=== PATIENT | male | born 1980 | race Caucasian/White ===

== ENCOUNTER 2018-04-06 12:51 | Emergency (ER) | payer SELFPAY ==
--- NOTE | 2018-04-06 12:55 | ER Report ---
History and Physical Time Seen By MD: 12:55 HPI/ROS CHIEF COMPLAINT: Right lower quadrant abdominal and flank pain HISTORY OF PRESENT ILLNESS: Patient is a 37-year-old male here with complaints of right lower quadrant abdominal pain and right flank pain which started yesterday and acutely worsened approximately 2 hours ago. Patient complains of sharp severe pain with radiation to the groin. Denies hematuria, fevers, chest pain, shortness breath. Patient has attempted taking Tylenol without relief. Patient complains of nausea without vomiting. REVIEW OF SYSTEMS: Constitutional: No fever, no chills. Eyes: No discharge. ENT: No sore throat. Cardiovascular: No chest pain, no palpitations. Respiratory: No cough, no shortness of breath. Gastrointestinal: + RLQ abdominal pain, no vomiting, + nausea Genitourinary: No hematuria. Musculoskeletal: + right flank back pain. Skin: No rashes. Neurological: No headache. Allergies: Coded Allergies: Penicillins (Verified Allergy, Unknown, 04/06/18) ketorolac (Verified Allergy, Unknown, 04/06/18) Home Meds Active Scripts Oxycodone Hcl/Acetaminophen (PERCOCET 5-325 MG TABLET) 1 Each Tablet, 1 EACH PO Q4H Y for PAIN, #12 TAB 0 Refills Prov:ACUÑAKACIE GONGORA S DO 04/06/18 Ondansetron (ZOFRAN ODT) 4 Mg Tab.rapdis, 4 MG PO Q6H Y for NAUSEA/VOMITING, # 20 TAB.JOSE 0 Refills Prov:ACUÑAKACIE S DO 04/06/18 Constitutional Vital Sign - Last 24 Hours 04/06/18 04/06/18 04/06/18 04/06/18 12:56 13:13 13:30 14:00 Temp 97.8 Pulse 95 81 Resp 18 B/P (MAP) 120/98 120/78 (92) 116/79 (91) 114/74 (87) Pulse Ox 94 93 O2 Delivery Room Air 04/06/18 14:40 B/P (MAP) 104/93 (97) Physical Exam General Appearance: The patient is alert, has no immediate need for airway protection and no signs of toxicity. + moderate distress due to pain Eyes: Pupils equal and round no pallor or injection. ENT, Mouth: Mucous membranes are moist. Respiratory: There are no retractions, lungs are clear to auscultation. Cardiovascular: Regular rate and rhythm. Gastrointestinal: Abdomen is soft and + TTP RLQ, no masses, bowel sounds normal. Neurological: No focal deficits Skin: Warm and dry, no rashes. Musculoskeletal: Neck is supple non tender. Extremities are nontender, nonswollen and have full range of motion. DIFFERENTIAL DIAGNOSIS: After history and physical exam differential diagnosis was considered for abdominal pain including but not limited to appendicitis, cholecystitis, gastritis and urinary tract infection, nephrolithiasis, pyelonephritis Medical Decision Making Data Points Result Diagram: 04/06/18 1301 04/06/18 1301 Laboratory Hematology Test 04/06/18 12:55 04/06/18 13:01 Urine Color Straw Urine Clarity Clear Urine pH 7.0 pH (4.8-9.5) Urine Specific [place] 1.010 Urine Protein Negative mg/dL (NEGATIVE) Urine Glucose (UA) Negative mg/dL (NEGATIVE) Urine Ketones Negative mg/dL (NEGATIVE) Urine Blood Negative (NEGATIVE) Urine Nitrite Negative (NEGATIVE) Urine Bilirubin Negative (NEGATIVE) Urine Urobilinogen Negative mg/dL (0.2-1.9) Urine Leukocyte Esterase Negative (NEGATIVE) Urine RBC None /HPF (0-2/HPF) Urine WBC None /HPF (0-5/HPF) Urine Squamous Epithelial Cells Few /LPF (</=FEW) Urine Bacteria Negative /HPF (NONE-FEW) Urine Mucus None /HPF (NONE-FEW) Red Blood Count 5.67 M/uL (4.00-5.60) Mean Corpuscular Volume 91.6 fL (80.0-96.0) Mean Corpuscular Hemoglobin 31.9 pg (26.0-33.0) Mean Corpuscular Hemoglobin Concent 34.8 g/dL (32.0-36.0) Red Cell Distribution Width 13.7 % (11.5-14.5) Mean Platelet Volume 6.1 fL (7.2-11.1) Neutrophils (%) (Auto) 71.3 % (39.4-72.5) Lymphocytes (%) (Auto) 20.4 % (17.6-49.6) Monocytes (%) (Auto) 6.0 % (4.1-12.4) Eosinophils (%) (Auto) 1.7 % (0.4-6.7) Basophils (%) (Auto) 0.6 % (0.3-1.4) Nucleated RBC Relative Count (auto) 0.0 /100WBC Neutrophils # (Auto) 5.6 K/uL (2.0-7.4) Lymphocytes # (Auto) 1.6 K/uL (1.3-3.6) Monocytes # (Auto) 0.5 K/uL (0.3-1.0) Eosinophils # (Auto) 0.1 K/uL (0.0-0.5) Basophils # (Auto) 0.1 K/uL (0.0-0.1) Nucleated RBC Absolute Count (auto) 0.00 K/uL Sodium Level 141 mmol/L (137-145) Potassium Level 4.5 mmol/L (3.5-5.0) Chloride Level 101 mmol/L (98-107) Carbon Dioxide Level 28 mmol/L (22-30) Blood Urea Nitrogen 9 mg/dl (9-21) Creatinine 0.80 mg/dl (0.66-1.25) Glomerular Filtration Rate Calc > 60.0 Random Glucose 106 mg/dl (75-110) Lactate 2.3 mmol/L (0.7-2.1) Calcium Level 9.3 mg/dl (8.4-10.2) Total Bilirubin 1.5 mg/dl (0.2-1.3) Aspartate Amino Transf (AST/SGOT) 69 U/L (0-35) Alanine Aminotransferase (ALT/SGPT) 103 U/L (0-56) Alkaline Phosphatase 63 U/L (0-126) Total Protein 7.3 g/dl (6.3-8.2) Albumin 4.3 g/dl (3.5-5.0) Lipase 47 U/L (23-300) Chemistry Test 04/06/18 12:55 04/06/18 13:01 Urine Color Straw Urine Clarity Clear Urine pH 7.0 pH (4.8-9.5) Urine Specific [place] 1.010 Urine Protein Negative mg/dL (NEGATIVE) Urine Glucose (UA) Negative mg/dL (NEGATIVE) Urine Ketones Negative mg/dL (NEGATIVE) Urine Blood Negative (NEGATIVE) Urine Nitrite Negative (NEGATIVE) Urine Bilirubin Negative (NEGATIVE) Urine Urobilinogen Negative mg/dL (0.2-1.9) Urine Leukocyte Esterase Negative (NEGATIVE) Urine RBC None /HPF (0-2/HPF) Urine WBC None /HPF (0-5/HPF) Urine Squamous Epithelial Cells Few /LPF (</=FEW) Urine Bacteria Negative /HPF (NONE-FEW) Urine Mucus None /HPF (NONE-FEW) White Blood Count 7.9 k/uL (4.5-11.0) Red Blood Count 5.67 M/uL (4.00-5.60) Hemoglobin 18.1 g/dL (14.0-18.0) Hematocrit 52.0 % (42.0-52.0) Mean Corpuscular Volume 91.6 fL (80.0-96.0) Mean Corpuscular Hemoglobin 31.9 pg (26.0-33.0) Mean Corpuscular Hemoglobin Concent 34.8 g/dL (32.0-36.0) Red Cell Distribution Width 13.7 % (11.5-14.5) Platelet Count 323 K/uL (150-450) Mean Platelet Volume 6.1 fL (7.2-11.1) Neutrophils (%) (Auto) 71.3 % (39.4-72.5) Lymphocytes (%) (Auto) 20.4 % (17.6-49.6) Monocytes (%) (Auto) 6.0 % (4.1-12.4) Eosinophils (%) (Auto) 1.7 % (0.4-6.7) Basophils (%) (Auto) 0.6 % (0.3-1.4) Nucleated RBC Relative Count (auto) 0.0 /100WBC Neutrophils # (Auto) 5.6 K/uL (2.0-7.4) Lymphocytes # (Auto) 1.6 K/uL (1.3-3.6) Monocytes # (Auto) 0.5 K/uL (0.3-1.0) Eosinophils # (Auto) 0.1 K/uL (0.0-0.5) Basophils # (Auto) 0.1 K/uL (0.0-0.1) Nucleated RBC Absolute Count (auto) 0.00 K/uL Glomerular Filtration Rate Calc > 60.0 Lactate 2.3 mmol/L (0.7-2.1) Calcium Level 9.3 mg/dl (8.4-10.2) Total Bilirubin 1.5 mg/dl (0.2-1.3) Aspartate Amino Transf (AST/SGOT) 69 U/L (0-35) Alanine Aminotransferase (ALT/SGPT) 103 U/L (0-56) Alkaline Phosphatase 63 U/L (0-126) Total Protein 7.3 g/dl (6.3-8.2) Albumin 4.3 g/dl (3.5-5.0) Lipase 47 U/L (23-300) Urinalysis Test 04/06/18 12:55 Urine Color Straw Urine Clarity Clear Urine pH 7.0 pH (4.8-9.5) Urine Specific [place] 1.010 Urine Protein Negative mg/dL (NEGATIVE) Urine Glucose (UA) Negative mg/dL (NEGATIVE) Urine Ketones Negative mg/dL (NEGATIVE) Urine Blood Negative (NEGATIVE) Urine Nitrite Negative (NEGATIVE) Urine Bilirubin Negative (NEGATIVE) Urine Urobilinogen Negative mg/dL (0.2-1.9) Urine Leukocyte Esterase Negative (NEGATIVE) Urine RBC None /HPF (0-2/HPF) Urine WBC None /HPF (0-5/HPF) Urine Squamous Epithelial Cells Few /LPF (</=FEW) Urine Bacteria Negative /HPF (NONE-FEW) Urine Mucus None /HPF (NONE-FEW) EKG/Imaging Imaging CT abdomen and pelvis with IV contrast: Several appendicoliths were identified without inflammatory changes around the appendix. No nephrolithiasis or hydronephrosis was identified. Please see official report for more details. ED Course/Re-evaluation ED Course Patient had taken Tylenol prior to arrival without relief of symptoms. Patient is a 37-year-old male here with complaints of right lower quadrant abdominal pain, right flank pain which radiates to the groin patient started yesterday however acutely worsen overnight. Patient denies prior history of nephrolithiasis, hematuria, dysuria. Patient attempted taking tylenol without relief. He received dialudid, zofran and fluids with moderate relief of symptoms. Urinalysis showed no acute blood or infectious etiology. Physical exam was unremarkable aside for exquisite right lower quadrant abdominal pain, right CVA tenderness. CT imaging of the abdomen and pelvis showed appendicoliths without any sign of infection or inflammatory changes. No nephrolithiasis or ureterolithiasis was identified. Patient was supplied with scripts for Zofran and Percocet for home and analgesia. She was advised to return promptly if you develop worsening pain, fevers, chills, worsening nausea. Patient was stable at time of discharge. Decision to Disposition Date: Apr 06, 2018 Decision to Disposition Time: 14:40 Depart Departure Latest Vital Signs Vital Signs Date Time Temp Pulse Resp B/P (MAP) Pulse Ox O2 Delivery O2 Flow Rate FiO2 04/06/18 14:40 104/93 (97) 04/06/18 14:00 81 93 04/06/18 12:56 97.8 18 Room Air Impression: Primary Impression: Flank pain Additional Impression: Abdominal pain Condition: Improved Disposition: HOME OR SELF-CARE New Scripts Oxycodone Hcl/Acetaminophen (PERCOCET 5-325 MG TABLET) 1 Each Tablet 1 EACH PO Q4H Y for PAIN, #12 TAB 0 Refills Prov: KACIE ACUÑA DO 04/06/18 Ondansetron (ZOFRAN ODT) 4 Mg Tab.rapdis 4 MG PO Q6H Y for NAUSEA/VOMITING, #20 TAB.JOSE 0 Refills Prov: KACIE ACUÑA DO 04/06/18 Patient Instructions: Acute Abdominal Pain (ED), Flank Pain (ED) Additional Instructions: Please follow up with your family doctor in the next 3 days. Please return promptly if he develop worsening pain, fevers, difficulty urinating or pass bowel movements, difficulty eating. You may take 1 tablet of Zofran every 4-6 hours as needed for nausea and 1 Percocet every 4-6 hours as needed for pain. Problem Qualifiers Additional Impression: Abdominal pain Abdominal location: right lower quadrant Qualified Codes: R10.31 - Right lower quadrant pain KACIE ACUÑA DO Apr 06, 2018 12:55
[2018-04-06] MEDS ORDERED: NS(*) 0.9% 1000 ML BAG 1,000 ML IV ONE (13:03)
[2018-04-06] MEDS ORDERED: ONDANSETRON 4 MG/2 ML VIAL IVP ONE (13:05)
[2018-04-06] MEDS ORDERED: HYDROmorphone* 1 MG/ML 1 MG/ML ML IVP ONE (13:05)
[2018-04-06 13:12] LABS: PLATELET COUNT, AUTOMATED 323 K/uL (150-450)
[2018-04-06] MEDS ORDERED: OXYC-865 PO (14:35)
[2018-04-06] MEDS ORDERED: ONDA4TAB PO (14:35)
[2018-04-06 14:40] VITALS: BP 104/93
== END 2018-04-06 14:49 | disposition home or self-care (01) ==
LOC: ER 12:53
DX: R10.31 Right lower quadrant pain (principal)
CPT/HCPCS: 74176; 81001; 83605; 83690; 85025; 96361; 96374; 96375; 99284; J1170; J2405; J7030; 82040; 82247; 82310; 82374; 82435; 82565; 82947; 84075; 84132; 84155; 84295; 84450; 84460; 84520